=== PATIENT | male | born 1960 | race Caucasian/White ===

== ENCOUNTER 2023-02-17 14:27 | Observation (INO) ==
[2023-02-17] MEDS ORDERED: DECADRON IVP ONE (15:24)
--- NOTE | 2023-02-17 15:35 | ED.PDOC ---
General ED Provider: Dr. WILMA MURILLO MD Chief Complaint: Altered Mental Status Stated Complaint: More confused lately. 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 He was in a shelter but improved and DC back home 2 weeks ago. He was brought in by his brother for changing MS and more agitated at times. No pain or headache. No cough. Did vomit once today. Had been on peritoneal dialysis for several months and pulled his catheter out today. 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 Call to his daughter (POA) and he had a lung nodule(s) in the past and had declined work-up. Was at least a PPD smoker till earlier this year. Had history of chronic kidney injury for 2 years and sees Jason Love at [place], [place]. Been on PD since about May and actually volume of dialysate dropped to 1 liter from 2 liters. A month ago, he was admitted for persistent UTI and AMS and found to have multiple brain mets. He did great on Decadron and this was tapered down to 8 mg on Jan 23; 4 mg on Jan 25 and been on 2 mg daily since Jan 30. Time Seen by Provider: 02/17/23 15:08 Mode of Arrival: Wheelchair Information Source: Patient and Family Exam Limitations: Clinical condition, Dementia and Altered mental status Primary Care Provider: CROW BECERRA Referred to ED by: Other (self) Nursing and Triage Documentation Reviewed and Agree: Yes Neurological Complaint Exam Altered Mental Status Complaint/Exam Current Mental Status: Confusion and Agitation Duration: 1-2 days Symptoms Are: Still present Eye Deviation Present: No Character: Reports Confusion and Agitation Associated Signs and Symptoms: Reports Vomiting; Denies Headache or Fever Cardiac Risk Factors: Reports Hypertension CVA Risk Factors: Reports Hypertension Glascow Coma Scale (see protocol): Eye component 4, motor 6 and verbal of 4 Meningeal Signs Positive: No Focal Weakness: Present None Gait: Unable Review of Systems Review Of Systems Constitutional: Denies Diaphoresis, Fever, Sweats or Loss of appetite Eyes: Reports No symptoms Ears, Nose, Mouth, Throat: Reports No symptoms Respiratory: Denies Cough or Shortness of Breath Cardiac: Denies Chest pain GI: Reports Vomiting; Denies Diarrhea All Other Systems: Other (Limited ROS due to altered MS) PFSH Medical History ESRD on peritoneal dialysis N18.6 - End stage renal disease (ICD-10) Z99.2 - Dependence on renal dialysis (ICD-10) History of urinary retention Z87.898 - Personal history of other specified conditions (ICD-10) Lung nodule R91.1 - Solitary pulmonary nodule (ICD-10) Mass in chest R22.2 - Localized swelling, mass and lump, trunk (ICD-10) Peritoneal dialysis catheter, fitting and adjustment Z49.02 - Encounter for fitting and adjustment of peritoneal dialysis catheter (ICD-10) Social History Smoking and tobacco status: Former smoker How long ago did patient quit smoking: SPRING 2022 Alcohol intake: former Substance use type: former substance user Surgical History H/O inguinal hernia repair Z98.890 - Other specified postprocedural states (ICD-10) Z87.19 - Personal history of other diseases of the digestive system (ICD-10) Physical Exam Physical Exam Appearance: Reports Ill-appearing and No pain distress Ill-appearing: Mild Pain Distress: None Eyes: Reports SANTOS and EOMI ENT: Reports Nose normal and Oropharynx normal Neck: Supple Respiratory: Reports Airway patent, Breath sounds clear and Breath sounds equal; Denies Respirations nonlabored, Wheezes or Retractions Cardiovascular: Reports RRR and Pulses normal GI/: Reports Soft, Bowel sounds normal and Other (some guarding with some swelling on the lower abdomen . PD catheter intact but cap is missing) Musculoskeletal: Reports Normal strength and ROM intact Skin: Reports Warm and Dry Neurological: Reports Motor intact Psychiatric: Reports Mood appropriate and Anxious Physician Notification Case Discussed Physician Notified: Dr. Brumfield, Neurosurgery Time of Notification: 16:03 Comments: He recommended transferring to [facility], [place] for work-up Physician Notified: Mark Time of Notification: 17:00 Critical Care Note Critical Care Note Total Critical Care Time (mins): 0 Course Course 02/17/23 15:48 02/17/23 15:48 Orders, Labs, Meds: Lab Review 02/17/23 02/17/23 15:48 17:30 WBC 8.50 RBC 4.85 Hgb 13.9 L Hct 44.7 MCV 92.2 MCH 28.7 MCHC 31.1 L RDW Coeff of Delores 16.7 H Plt Count 430 Immature Gran % (Auto) 0.8 Neut % (Auto) 76.4 H Lymph % (Auto) 10.7 [place] % (Auto) 10.8 H Eos % (Auto) 0.7 Baso % (Auto) 0.6 Neut # (Auto) 6.5 Lymph # (Auto) 0.9 [place] # (Auto) 0.9 Eos # (Auto) 0.1 Baso # (Auto) 0.1 Immature Gran # (Auto) 0.1 Sodium 141.9 Potassium 3.83 Chloride 104.7 Carbon Dioxide 27.2 Anion Gap 13.83 BUN 53.1 H Creatinine 3.62 H* Estimated GFR (MDRD) 17.00 BUN/Creatinine Ratio 14.66 Glucose 124.9 H Lactic Acid 1.29 Calcium 9.50 Total Bilirubin 0.58 AST 21.9 ALT 19.8 Alkaline Phosphatase 109.3 Total Protein 8.05 Albumin 4.47 Globulin 3.58 Albumin/Globulin Ratio 1.24 Procalcitonin < 0.05 Urine Color Yellow Urine Clarity Clear Urine pH 8.5 Ur Specific [place] 1.015 Urine Protein 2+ H Urine Glucose (UA) Negative Urine Ketones Negative Urine Blood 2+ H Urine Nitrite Positive H Urine Bilirubin Negative Urine Urobilinogen 0.2 Ur Leukocyte Esterase 3+ H Urine Microscopic RBC 2-5 Urine Microscopic WBC 5-10 Ur Squamous Epith Cells 2-5 SARS CoV-2 RNA Rapid JAYA Negative Orders Category Date Time Status ADMIT PATIENT SWING .[facility] ADMISSION 02/17/23 17:[address] PATIENT OBSERVATION .[facility] ([facility] ADMISSION 02/17/23 17:18 Active BED) ACTIVITY .Up With Assistance CARE 02/17/23 17:18 Active ACTIVITY .Up With Assistance CARE 02/17/23 17:37 Active HOSPICE CONSULTATION ONCE CARE 02/17/23 17:18 Active INTAKE & OUTPUT Q8HR CARE 02/17/23 17:18 Active VITAL SIGNS Q8HR CARE 02/17/23 17:18 Completed VITAL SIGNS Q8HR CARE 02/17/23 17:39 Completed REGULAR DIET DIETARY 02/17/23 Dinner Ordered REGULAR DIET DIETARY 02/18/23 Breakfast Ordered Saline Lock [ED IV/MEDIPORT/POWERPORT] .ONCE EMERGENCY 02/17/23 15:24 Active BLOOD CULTURE (ED ONLY) Stat LAB 02/17/23 15:48 Received CBC W/ AUTO DIFF DAILY@0600 LAB 02/18/23 06:00 Ordered CBC W/ AUTO DIFF DAILY@0600 LAB 02/19/23 06:00 Ordered CBC W/ AUTO DIFF Stat LAB 02/17/23 15:48 Completed CMP [COMPREHENSIVE METABOLIC PANEL] Stat LAB 02/17/23 15:48 Completed COVID [SARS COV-2 RNA RAPID JAYA] Stat LAB 02/17/23 17:30 Completed LACTIC ACID Stat LAB 02/17/23 15:48 Completed PROCALCITONIN Stat LAB 02/17/23 15:48 Completed PT WITH INR DAILY@0600 LAB 02/18/23 06:00 Ordered PT WITH INR DAILY@0600 LAB 02/19/23 06:00 Ordered URINALYSIS C & S IF INDICATED Stat LAB 02/17/23 17:30 Completed URINE CULTURE Stat LAB 02/17/23 17:41 Received 0.9 % Sodium Chloride [Saline Flush] Meds 02/17/23 15:24 Active 1 syr IVF PRN PRN Acetaminophen [Tylenol] Meds 02/17/23 17:18 Active 650 mg PO Q4H PRN Dexamethasone Sod Phosphate [Decadron] Meds 02/17/23 15:24 Discontinued 8 mg IVP ONCE ONE Dextrose 5 %-0.45 % NaCl [Dextrose 5%-1/2Ns IV Solution Meds 02/17/23 17:37 Active ] 1,000 ml IV 100 mls/hr Lidocaine HCl Jelly [Glydo] Meds 02/17/23 16:51 Discontinued 11 ml TRANSURETH ONCE ONE Piperacillin Sodium/Tazobactam [Zosyn 2.25 gm] 2.25 gm Meds 02/17/23 17:26 Discontinued 0.9 % Sodium Chloride [Sodium Chloride 100Ml] 100 ml IV ONCE RESUSCITATION STATUS Routine OTHERS 02/17/23 17:37 Ordered CHEST, 1V AP ONLY Stat RADS 02/17/23 15:[address] HEAD W/O CONTRAST Stat RADS 02/17/23 15:24 Completed ACTIVITIES CONSULT Routine THERAPIES 02/17/23 17:38 Ordered PT INPATIENT EVALUATION Routine THERAPIES 02/17/23 17:38 Ordered Medications Generic Name Dose Route Start Last Admin Trade Name Freq PRN Reason Stop Dose Admin Acetaminophen 650 mg 02/17/23 17:18 Acetaminophen 325 Mg Tablet PO Q4H PRN Mild Pain Dextrose/Sodium Chloride 1,000 mls @ 100 mls/hr 02/17/23 17:37 Dextrose 5%-1/2ns Iv Solution IV 02/18/23 03:36 .Q10H STA Sodium Chloride 1 syr 02/17/23 15:24 02/17/23 16:01 0.9% Sodium Chloride 10 Ml Disp.Syrin IVF 1 syr PRN PRN Administration To flush IV Discontinued Medications Generic Name Dose Route Start Last Admin Trade Name Freq PRN Reason Stop Dose Admin Dexamethasone Sodium Phosphate 8 mg 02/17/23 15:24 02/17/23 16:00 Dexamethasone Sod Phos 10 Mg/Ml Inj IVP 02/17/23 15:25 8 mg ONCE ONE Administration Piperacillin Sod/Tazobactam 100 mls @ 200 mls/hr 02/17/23 17:26 02/17/23 17:47 Sod 2.25 gm/ Sodium Chloride IV 02/17/23 17:55 200 mls/hr ONCE ONE Administration Lidocaine HCl 11 ml 02/17/23 16:51 02/17/23 16:57 Lidocaine Jelly 11 Ml Jel.Pf.Elgin (5ml Female/11ml Male) TRANSURETH 02/17/23 16:52 11 ml ONCE ONE Administration Vital Signs: Temp Pulse Resp BP Pulse Ox 02/17/23 14:31 98.3 F 75 18 150/99 H [address] Brumfield at [facility] who recommend transfer and work-up. Daughter is in health care and works at [facility], [place] and didn't want her father transfer and will make him hospice. Hospitalist will only admit if he is hospice as she have no oncology,neurosurgery, rad therapy available. We did obtained urine by straight cath and 1200 cc of cloudy urine. Will dose IV Zosyn . I tried to discussed that the decadron is at best a temporazing measure as the current CT scan already showed increasing size and # of metastatic lesion in his brain. Daughter knows that her father will likely soon Discharge Plan Discharge Patient Disposition: ADMITTED INPATIENT Discharge Problem: Urinary tract infection, Acute alteration in mental status, Vasogenic brain edema, Acute urinary retention Did you review [place] SLOT OPERATIONS MANAGER for ALL controlled substances?: Not Applicable ED Provider: WILMA MURILLO Condition: Serious Physician Progress Note: []
[2023-02-17 15:56] LABS: BASOPHILS # (AUTO) 0.1 K/uL (0-0.2); BASOPHILS % (AUTO) 0.6 % (0.0-3.0); EOSINOPHILS # (AUTO) 0.1 K/ul (0.0-0.7); EOSINOPHILS % (AUTO) 0.7 % (0.0-7.0); HEMATOCRIT 44.7 % (42.0-52.0); HEMOGLOBIN 13.9 g/dl (14.0-18.0); IMMATURE GRANULOCYTE # (AUTO) 0.1 (0.0-1.0); IMMATURE GRANULOCYTE % (AUTO) 0.8 % (0.0-5.0); LYMPHOCYTES # (AUTO) 0.9 K/uL (0.60-3.4); LYMPHOCYTES % (AUTO) 10.7 (10.0-50.0); MEAN CORPUSCULAR HEMOGLOBIN 28.7 pg (27.0-31.0); MEAN CORPUSCULAR HGB CONC 31.1 (31.8-35.4); MEAN CORPUSCULAR VOLUME 92.2 fl (80.0-94.0); MONOCYTES # (AUTO) 0.9 K/uL (0.4-2.0); MONOCYTES % (AUTO) 10.8 (0-10); NEUTROPHILS # (AUTO) 6.5 K/ul (2.0-6.9); NEUTROPHILS % (AUTO) 76.4 % (42.2-75.2); PLATELET COUNT 430 10^3/uL (140-440); RDW COEFFICIENT OF VARIATION 16.7 % (11.6-14.8); RED BLOOD COUNT 4.85 10^6/ul (4.70-6.10)
--- NOTE | 2023-02-17 16:03 | DI ---
EXAM: CHEST ONE VIEW, FRONTAL VIEW ONLY. HISTORY: Altered mental status. COMPARISON: 01/14/2023. FINDINGS: Heart size is at the upper limits of normal. Atherosclerotic calcifications present. Esdras ateral bronchial thickening and reticulonodular opacities present. Larger discrete nodular densities noted at the right lung base.. No pleural effusion or pneumothorax detected. No acute osseous abno rmality is seen. IMPRESSION: 1. Bronchial thickening reticulonodular opacities which can be due to airways inflammation. 2. Right basilar nodular densities could represent metastases.
[2023-02-17 16:08] LABS: ALANINE AMINOTRANSFERASE 19.8 U/L (0-50); ALBUMIN 4.47 g/dL (3.5-5.0); ALKALINE PHOSPHATASE 109.3 U/L (56-119); ASPARTATE AMINO TRANSFERASE 21.9 U/L (17-59); BILIRUBIN,TOTAL 0.58 mg/dL (0.2-1.3); BLOOD UREA NITROGEN 53.1 mg/dL (9-20); CALCIUM 9.5 mg/dL (8.4-10.2); CARBON DIOXIDE 27.2 mmol/L (22-30.0); CHLORIDE 104.7 mmol/L (98-107); GLUCOSE 124.9 mg/dL (74-106); POTASSIUM 3.83 mmol/L (3.5-5.1); SODIUM 141.9 mmol/L (134.5-145); TOTAL PROTEIN 8.05 g/dL (6.3-8.2)
[2023-02-17 16:09] LABS: CREATININE 3.62 mg/dL (0.60-1.10)
--- NOTE | 2023-02-17 16:09 | CT ---
EXAM: CT BRAIN HISTORY: Brain metastases, altered mental status TECHNIQUE: CT brain without intravenous contrast. 5-mm axial sections with Reformations. COMPARISON: 01/14/2023 FINDINGS: Increasing size and number of multiple intracranial metastatic lesions measuring up to 2.2 cm axial dimension. One new lesion in the deep white matter on the left measuring 15 mm has partial increased density suggestive of petechial hemorrhage. Again noted is severe supratentorial vasogenic edema with mass effect. Midline shift toward the right is present of 7.8 mm, somewhat similar to th at previously seen. Basal cisterns are patent. No acute ventriculomegaly. The cranium is intact. Mastoid air cells are aerated and the visualized paranasal sinuses are clear. IMPRESSION: 1. Increasing size and number of multiple intracranial metastatic lesions measuring up to 2.2 cm axi al dimension. One new lesion in the deep white matter on the left measuring 15 mm has partial increa sed density suggestive of petechial hemorrhage. 2. Again noted is severe supratentorial vasogenic edema with mass effect. Midline shift toward the right is present of 7.8 mm, somewhat similar to that previously seen. - - - - - All CT scans are performed using dose optimization techniques as appropriate to the performed exam an d include at least one of the following: Automated exposure control, adjustment of the mA and/or kV according t o size, and the use of iterative reconstruction technique.
[2023-02-17] MEDS ORDERED: GLYDO TRANSURETH ONE (16:51)
[2023-02-17] MEDS ORDERED: TYLENOL PO PRN (17:18)
[2023-02-17] MEDS ORDERED: ZOSYN 2.25 GM 2.25 GM in SODIUM CHLORIDE 100ML 100 ML IV ONE (17:26)
[2023-02-17 17:36] LABS: BILIRUBIN,URINE Negative (NEGATIVE); CLARITY,URINE Clear (CLEAR); COLOR,URINE Yellow (YELLOW); GLUCOSE, URINE (UA) Negative (NEGATIVE); KETONES,URINE Negative (NEGATIVE); LEUKOCYTE ESTERASE ,URINE 3+ (NEGATIVE); NITRITE,URINE Positive (NEGATIVE); PH,URINE 8.5 (5-9); PROTEIN,URINE 2+ (NEGATIVE); URINE, BLOOD 2+ (NEGATIVE); UROBILINOGEN,URINE 0.2 (0.2)
[2023-02-17] MEDS ORDERED: DEXTROSE 5%-1/2NS IV SOLUTION 1,000 ML IV STA (17:37)
[2023-02-17 17:46] LABS: SARS COV-2 RNA RAPID NAAT NEGATIVE (NEGATIVE)
[2023-02-17 18:38] VITALS: BMI 20.9
[2023-02-18] MEDS ORDERED: ZYPREXA IM ONE (04:47)
[2023-02-18 05:33] LABS: BASOPHILS % (AUTO) 0.1 % (0.0-3.0); HEMOGLOBIN 13.1 g/dl (14.0-18.0); IMMATURE GRANULOCYTE # (AUTO) 0.1 (0.0-1.0); LYMPHOCYTES # (AUTO) 0.7 K/uL (0.60-3.4); LYMPHOCYTES % (AUTO) 8.1 (10.0-50.0); MEAN CORPUSCULAR HEMOGLOBIN 28.5 pg (27.0-31.0); MEAN CORPUSCULAR HGB CONC 31.2 (31.8-35.4); MEAN CORPUSCULAR VOLUME 91.3 fl (80.0-94.0); MONOCYTES # (AUTO) 0.6 K/uL (0.4-2.0); MONOCYTES % (AUTO) 7.8 (0-10); NEUTROPHILS # (AUTO) 6.8 K/ul (2.0-6.9); PLATELET COUNT 417 10^3/uL (140-440); RDW COEFFICIENT OF VARIATION 16.4 % (11.6-14.8); WHITE BLOOD COUNT 8.23 K/ul (4.2-10.2)
[2023-02-18 06:04] LABS: PROTHROMBIN TIME 9.8 SEC (9.3-11.0)
[2023-02-18 06:29] LABS: ALANINE AMINOTRANSFERASE 19.5 U/L (0-50); ALBUMIN 4.22 g/dL (3.5-5.0); ALKALINE PHOSPHATASE 95.7 U/L (56-119); ASPARTATE AMINO TRANSFERASE 21.9 U/L (17-59); BILIRUBIN,TOTAL 0.5 mg/dL (0.2-1.3); BLOOD UREA NITROGEN 48.3 mg/dL (9-20); CALCIUM 9.07 mg/dL (8.4-10.2); CARBON DIOXIDE 24.8 mmol/L (22-30.0); CHLORIDE 106.4 mmol/L (98-107); CREATININE 3.39 mg/dL (0.60-1.10); POTASSIUM 4.1 mmol/L (3.5-5.1); SODIUM 136.4 mmol/L (134.5-145); TOTAL PROTEIN 7.51 g/dL (6.3-8.2)
[2023-02-18] MEDS ORDERED: KEFLEX PO SCH (09:00)
[2023-02-18] MEDS: KEFLEX PO SCH ×3 (10:17→21:01)
[2023-02-18] MEDS: SODIUM BICARBONATE PO SCH (10:17)
[2023-02-18] MEDS: FLOMAX PO SCH (10:17)
[2023-02-18] MEDS: FLORASTOR PO SCH ×2 (10:17→21:01)
--- NOTE | 2023-02-18 10:53 | PCM ---
Date of Service Date Seen by Provider: 02/18/23 Time Seen by Provider: 08:40 Admit Day/Time Admission Date: 02/17/23 Reason for Admission Chief Complaint: VASOGENIC EDEMA,MIDLINE SHIFT Hospital Provider Hospital Provider: [facility], [facility] Primary Care Physician Primary Care Physician: CROW BECERRA History of Present Illness History of Present Illness: 62 yo male presented to the ER with his brother for altered mental status and agitation. Had an episode of vomiting earlier in the day yesterday. He was admitted on 01/15/23 and was found to have brain mets with vasogenic edema. He was placed on Decadron and d/c to the [place]. Patient improved over course of time and has been living at home over the last 2 weeks. He has been on peritoneal dialysis over the last several months and has been completed by his daughter. Brother reported that he pulled the cap off the catheter. CT scan completed in ER showed worsening mets with hemorrhages present. His daughter/POA, Gabriela Reagan, was contacted in the ER and stated that she wished for the patient to be placed on hospice and did not wish for him to be transferred for interventions to be completed. Due to AMS, unable to obtain HPI or ROS from patient. Case Discussed With Case Discussed With: Patient's case was discussed with the ER Physicians, Dr. Kim. [facility] Medical History Cancer C80.1 - Malignant (primary) neoplasm, unspecified (ICD-10) Peritoneal dialysis catheter, fitting and adjustment Z49.02 - Encounter for fitting and adjustment of peritoneal dialysis catheter (ICD-10) Mass in chest R22.2 - Localized swelling, mass and lump, trunk (ICD-10) Lung nodule R91.1 - Solitary pulmonary nodule (ICD-10) History of urinary retention Z87.898 - Personal history of other specified conditions (ICD-10) ESRD on peritoneal dialysis N18.6 - End stage renal disease (ICD-10) Z99.2 - Dependence on renal dialysis (ICD-10) Surgical History H/O inguinal hernia repair Z98.890 - Other specified postprocedural states (ICD-10) Z87.19 - Personal history of other diseases of the digestive system (ICD-10) Family History Other No known health problems Social History Smoking and tobacco status: Former smoker How long ago did patient quit smoking: SPRING 2022 Alcohol intake: former Substance use type: former substance user Allergies Allergies Allergy/AdvReac Type Severity Reaction Status Date / Time No Known Allergies Allergy Verified 02/17/23 20:52 Current Medications Home Medications tamsulosin 0.4 mg capsule (Flomax) 0.4 mg PO DAILY 07/22/22 [History Confirmed 02/17/23 Last Taken 02/16/23] Saccharomyces boulardii 250 mg capsule (Florastor) 250 mg PO BID #60 caps [Rx Confirmed 02/17/23 Last Taken 02/16/23] dexamethasone 2 mg tablet 2 mg PO BID 02/17/23 [History Confirmed 02/17/23 Last Taken 02/16/23] sodium bicarbonate 650 mg tablet 650 mg PO DAILY 02/17/23 [History Confirmed 02/17/23 Last Taken 02/16/23] Home Acetaminophen (Acetaminophen 325 Mg Tablet) 650 mg PO Q4H PRN PRN Reason: Mild Pain Cephalexin (Cephalexin 500 Mg Capsule) 500 mg PO Q8HR [facility] Stop: 02/21/23 07:29 Last Admin: 02/18/23 10:17 Dose: 500 mg Non-Formulary Medication (Dexamethasone) 2 mg PO BID [facility] Saccharomyces Boulardii (Saccharomyces Boulardii 250 Mg Capsule) 250 mg PO BID [facility] Last Admin: 02/18/23 10:17 Dose: 250 mg Sodium Bicarbonate (Sodium Bicarbonate 650 Mg Tablet) 650 mg PO DAILY [facility] Last Admin: 02/18/23 10:17 Dose: 650 mg Sodium Chloride (0.9% Sodium Chloride 10 Ml Disp.Syrin) 1 syr IVF PRN PRN PRN Reason: To flush IV Last Admin: 02/17/23 16:01 Dose: 1 syr Tamsulosin HCl (Tamsulosin Hcl 0.4 Mg Cap.Er.24h) 0.4 mg PO DAILY [facility] Last Admin: 02/18/23 10:17 Dose: 0.4 mg Discontinued Medications Cephalexin (Cephalexin 500 Mg Capsule) 500 mg PO Q6HR [facility] Stop: 02/21/23 08:59 Dexamethasone Sodium Phosphate (Dexamethasone Sod Phos 10 Mg/Ml Inj) 8 mg IVP ONCE ONE Stop: 02/17/23 15:25 Last Admin: 02/17/23 16:00 Dose: 8 mg Piperacillin Sod/Tazobactam (Sod 2.25 gm/ Sodium Chloride) 100 mls @ 200 mls/hr IV ONCE ONE Stop: 02/17/23 17:55 Last Admin: 02/17/23 17:47 Dose: 200 mls/hr Dextrose/Sodium Chloride (Dextrose 5%-1/2ns Iv Solution) 1,000 mls @ 100 mls/hr IV .Q10H STA Stop: 02/18/23 03:36 Last Infusion: 02/18/23 04:44 Dose: Infused Lidocaine HCl (Lidocaine Jelly 11 Ml Jel.Pf.Elgin (5ml Female/11ml Male)) 11 ml TRANSURETH ONCE ONE Stop: 02/17/23 16:52 Last Admin: 02/17/23 16:57 Dose: 11 ml Olanzapine (Olanzapine 10 Mg Vial) 5 mg IM ONCE ONE Stop: 02/18/23 04:48 Last Admin: 02/18/23 05:16 Dose: 5 mg Physical examination Most Recent Vital Signs: Most Recent Vital Signs Temperature 97.6 F 02/18/23 05:17 Temperature Source Oral 02/18/23 05:17 Temperature Source Temporal Artery Scan 02/17/23 14:31 Pulse Rate 75 02/18/23 07:46 Respiratory Rate 20 02/18/23 05:17 Blood Pressure 167/87 H 02/18/23 05:17 Blood Pressure Mean 113 02/18/23 05:17 Blood Pressure Left Arm 149/86 02/17/23 18:31 Blood Pressure Location Left Arm 02/18/23 05:17 Blood Pressure Position Supine 02/18/23 05:17 O2 Sat by Pulse Oximetry 99 02/18/23 05:17 Oxygen Delivery Method Room Air 02/18/23 09:53 Height 5 ft 11 in 02/17/23 18:31 Weight 150 lb 02/17/23 18:31 Appearance: Positive No Apparent Distress, Ill-Appearing and Thin Skin: Positive Warm, Good Turgor and Good Color HEENT: Positive Normocephalic and Other (+1-2 mm pupils, fixed, nonreactive to light) Neck: Positive Supple and Midline Trachea Chest/Lungs: Positive Symmetrical With Equal Breath Sounds, Clear to Auscultation Bilaterally and Good Air Movement all 4 Lung Shetty Heart: Positive RRR, Pulses Normal, No S3 Auscultated and No S4 Auscultated GI/: Positive Soft, Nontender, Bowel Sounds Normal and No Distention Musculoskeletal: Positive Not Examined Extremities: Positive Stable Joints Without Laxity Neurological: Positive Disorinted and Other (lethargic, responsive to painful stimuli, unable to follow commands) Psychiatric: Negative Oriented x4, Appropriate Mood, Appropriate Affect, Intact Memory, Good Short-Term Recall, Good Long-Term Recall, Normal Judgement, Normal Insight, Other or Not Examined Labs This Visit Labs This Visit: Labs This Visit 02/17/23 02/17/23 02/18/23 15:48 17:30 05:05 WBC 8.50 8.23 RBC 4.85 4.60 L Hgb 13.9 L 13.1 L Hct 44.7 42.0 MCV 92.2 91.3 MCH 28.7 28.5 MCHC 31.1 L 31.2 L RDW Coeff of Delores 16.7 H 16.4 H Plt Count 430 417 Immature Gran % (Auto) 0.8 1.0 Neut % (Auto) 76.4 H 83.0 H Lymph % (Auto) 10.7 8.1 L [place] % (Auto) 10.8 H 7.8 Eos % (Auto) 0.7 0.0 Baso % (Auto) 0.6 0.1 Neut # (Auto) 6.5 6.8 Lymph # (Auto) 0.9 0.7 [place] # (Auto) 0.9 0.6 Eos # (Auto) 0.1 0.0 Baso # (Auto) 0.1 0.0 Immature Gran # (Auto) 0.1 0.1 PT 9.8 INR 0.94 Sodium 141.9 136.4 Potassium 3.83 4.10 Chloride 104.7 106.4 Carbon Dioxide 27.2 24.8 Anion Gap 13.83 9.30 BUN 53.1 H 48.3 H Creatinine 3.62 H* 3.39 H Estimated GFR (MDRD) 17.00 19.00 BUN/Creatinine Ratio 14.66 14.24 Glucose 124.9 H 118.0 H Lactic Acid 1.29 Calcium 9.50 9.07 Total Bilirubin 0.58 0.50 AST 21.9 21.9 ALT 19.8 19.5 Alkaline Phosphatase 109.3 95.7 Total Protein 8.05 7.51 Albumin 4.47 4.22 Globulin 3.58 3.29 Albumin/Globulin Ratio 1.24 1.28 Procalcitonin < 0.05 Urine Color Yellow Urine Clarity Clear Urine pH 8.5 Ur Specific [place] 1.015 Urine Protein 2+ H Urine Glucose (UA) Negative Urine Ketones Negative Urine Blood 2+ H Urine Nitrite Positive H Urine Bilirubin Negative Urine Urobilinogen 0.2 Ur Leukocyte Esterase 3+ H Urine Microscopic RBC 2-5 Urine Microscopic WBC 5-10 Ur Squamous Epith Cells 2-5 SARS CoV-2 RNA Rapid JAYA Negative Microbiology This Visit 02/17/23 17:41 Urine,Random Urine Culture - Preliminary Imaging Imaging: Date of Service: 01/14/23 EXAM: CT HEAD WITHOUT CONTRAST. FINDINGS: There are multiple bilateral ill-defined intraparenchymal masses in the frontal lobes, parietal lobes and right temporal lobe measuring up to 1.9 cm with extensive surrounding vasogenic edema. There is 0.7 cm left to right midline shift at the level of the septum pellucidum. The ventricles are within normal limits in size. The basal cisterns are normal in appearance. No intracranial hemorrhage. No extra-axial fluid collection. There is minimal mucosal thickening in the paranasal sinuses. The mastoid air cells are normal in appearance. Impression: Multiple bilateral intraparenchymal masses measuring up to 1.7 cm with extensive surrounding vasogenic edema, suspicious for metastatic disease. Midline shift as described. Paranasal sinusitis. Critical result: I personally discussed Impression #1 and #2 with the patient's ER physician (Dr. Grier) on 01/14/2023 at 8:53 p.m. Date of Service: 02/17/23 EXAM: CT BRAIN FINDINGS: Increasing size and number of multiple intracranial metastatic lesions measuring up to 2.2 cm axial dimension. One new lesion in the deep white matter on the left measuring 15 mm has partial increased density suggestive of petechial hemorrhage. Again noted is severe supratentorial vasogenic edema with mass effect. Midline shift toward the right is present of 7.8 mm, somewhat similar to that previously seen. Basal cisterns are patent. No acute ventriculomegaly. The cranium is intact. Mastoid air cells are aerated and the visualized paranasal sinuses are clear. IMPRESSION: 1. Increasing size and number of multiple intracranial metastatic lesions measuring up to 2.2 cm axial dimension. One new lesion in the deep white matter on the left measuring 15 mm has partial increased density suggestive of petechial hemorrhage. 2. Again noted is severe supratentorial vasogenic edema with mass effect. Midline shift toward the right is present of 7.8 mm, somewhat similar to that previously seen. Review Statement Review Statement: I have independently reviewed and interpreted the labs/EKGs/imaging that were ordered by the ER provider. I have reviewed all outside records that are available currently in our EMR including imaging/notes/labs from previous visits. Plan Plan: 1. Vasogenic brain edema in setting of metastatic brain lesions and petechial hemorrhage - terminal condition, Hospice consult, family does not wish aggressive measures 2. UTI - urine culture growth of gram negative rods, WBC negative, keflex Q8H All home medications continued for chronic conditions until patient is unable to swallow. DVT Prophylaxis: Comfort Measures Time Spent: Greater than 80 minutes spent with patient, 50% of the time spent with this patient was devoted to counseling and coordination of care. Advanced Care Plannin minutes spent discussing advance care planning. Disposition: Admit to: Med/Surg Observation DNR Discussed Plan of Care with Dr. Josy Emery. Medications Medication Orders: Medications Ordered Category Date Time Status 0.9 % Sodium Chloride [Saline Flush] Meds 02/17/23 15:24 Active 1 syr IVF PRN PRN Acetaminophen [Tylenol] Meds 02/17/23 17:18 Active 650 mg PO Q4H PRN Cephalexin [Keflex] Meds 02/18/23 07:30 Active 500 mg PO Q8HR Saccharomyces Boulardii [Florastor] Meds 02/18/23 09:00 Active 250 mg PO BID Sodium Bicarbonate Meds 02/18/23 09:00 Active 650 mg PO DAILY Tamsulosin HCl [Flomax] Meds 02/18/23 09:00 Active 0.4 mg PO DAILY dexamethasone Meds 02/18/23 09:00 Active 2 mg PO BID
[2023-02-18] MEDS ORDERED: VANCOMYCIN 1 GRAM/200 ML PREMIX 1 GM/200 ML BAG IV ONE (19:56)
[2023-02-18] MEDS ORDERED: DECADRON IVP ONE (20:47)
[2023-02-19 02:12] VITALS: RESP 18
[2023-02-19] MEDS: KEFLEX PO SCH ×2 (04:53→12:09)
[2023-02-19 05:32] LABS: BASOPHILS % (AUTO) 0.2 % (0.0-3.0); HEMATOCRIT 44.3 % (42.0-52.0); HEMOGLOBIN 13.8 g/dl (14.0-18.0); IMMATURE GRANULOCYTE # (AUTO) 0.1 (0.0-1.0); IMMATURE GRANULOCYTE % (AUTO) 1.3 % (0.0-5.0); LYMPHOCYTES # (AUTO) 0.8 K/uL (0.60-3.4); LYMPHOCYTES % (AUTO) 8.2 (10.0-50.0); MEAN CORPUSCULAR HEMOGLOBIN 28.8 pg (27.0-31.0); MEAN CORPUSCULAR HGB CONC 31.2 (31.8-35.4); MEAN CORPUSCULAR VOLUME 92.5 fl (80.0-94.0); MONOCYTES # (AUTO) 0.2 K/uL (0.4-2.0); MONOCYTES % (AUTO) 1.9 (0-10); NEUTROPHILS # (AUTO) 8.6 K/ul (2.0-6.9); NEUTROPHILS % (AUTO) 88.4 % (42.2-75.2); PLATELET COUNT 444 10^3/uL (140-440); RDW COEFFICIENT OF VARIATION 16.8 % (11.6-14.8); RED BLOOD COUNT 4.79 10^6/ul (4.70-6.10); WHITE BLOOD COUNT 9.77 K/ul (4.2-10.2)
[2023-02-19 05:44] LABS: ALANINE AMINOTRANSFERASE 21.4 U/L (0-50); ALBUMIN 4.25 g/dL (3.5-5.0); ALKALINE PHOSPHATASE 96.9 U/L (56-119); ASPARTATE AMINO TRANSFERASE 23.5 U/L (17-59); BILIRUBIN,TOTAL 0.36 mg/dL (0.2-1.3); BLOOD UREA NITROGEN 49.9 mg/dL (9-20); CALCIUM 8.99 mg/dL (8.4-10.2); CARBON DIOXIDE 23.4 mmol/L (22-30.0); CHLORIDE 106.2 mmol/L (98-107); CREATININE 3.29 mg/dL (0.60-1.10); GLUCOSE 128.3 mg/dL (74-106); POTASSIUM 4.79 mmol/L (3.5-5.1); SODIUM 139.7 mmol/L (134.5-145); TOTAL PROTEIN 7.63 g/dL (6.3-8.2)
[2023-02-19 06:22] LABS: PROTHROMBIN TIME 9.6 SEC (9.3-11.0)
[2023-02-19] MEDS: FLOMAX PO SCH (08:52)
[2023-02-19] MEDS: FLORASTOR PO SCH (08:52)
[2023-02-19] MEDS: SODIUM BICARBONATE PO SCH (08:52)
[2023-02-19 10:31] VITALS: TEMP 97.4
--- NOTE | 2023-02-19 11:07 | DCSUM ---
Admission Date Admission Date: 02/17/23 Discharge Date Discharge Date: 02/19/23 Admission Diagnosis Admission Diagnosis: 1. Vasogenic brain edema in setting of metastatic brain lesions and petechial hemorrhage 2. UTI Discharge Diagnosis Discharge Diagnosis: 1. Vasogenic brain edema in setting of metastatic brain lesions and petechial hemorrhage - Worsening 2. UTI - Improving Hospital Provider Hospital Provider: [facility] Primary Care Physician: CROW BECERRA Summary of History and Physical Summary of History and Physical: 62 yo male presented to the ER with his brother for altered mental status and agitation. Had an episode of vomiting earlier in the day yesterday. He was admitted on 01/15/23 and was found to have brain mets with vasogenic edema. He was placed on Decadron and d/c to the [facility]. Patient improved over course of time and has been living at home over the last 2 weeks. He has been on peritoneal dialysis over the last several months and has been completed by his daughter. Brother reported that he pulled the cap off the catheter. CT scan completed in ER showed worsening mets with hemorrhages present. His daughter/POA, Gabriela Reagan, was contacted in the ER and stated that she wished for the patient to be placed on hospice and did not wish for him to be transferred for interventions to be completed. Due to AMS, unable to obtain HPI or ROS from patient. Hospital Course Subjective: Daughter was contacted and determined plan of care for patient was hospice due to worsening brain mets with hemorrhage and edema. Wished for patient to continue high dose dexamethasone as well as hospice care. Due to daughter being on vacation and family unable to care for patient due to current state, patient was accepted to [facility] for hospice to take over care next week when the daughter returns from vacation. UTI was found during ER workup. Patient had been previously started on keflex Q8H per nephrology due to cap on peritoneal dialysis catheter being off. Urine culture showed growth of proteus mirabilis sensitive to keflex. Patient has been awake and cooperative. Speech is garbled and patient is able to follow some basic commands today. Appearance: Pleasant, No Apparent Distress and Alert HEENT: MMM and Supple CVS: No Murmur and No Rubs Abdomen: Soft, Non-Tender and No Distention Respiratory: No Dyspnea Extremities: No Edema Vital Signs: Most Recent Vital Signs Temperature 97.4 F L 02/19/23 10:00 Temperature Source Temporal Artery Scan 02/19/23 10:00 Temperature Source Temporal Artery Scan 02/17/23 14:31 Pulse Rate 71 02/19/23 10:00 Respiratory Rate 18 02/19/23 10:00 Blood Pressure 111/78 02/19/23 10:00 Blood Pressure Mean 89 02/19/23 10:00 Blood Pressure Left Arm 149/86 02/17/23 18:31 Blood Pressure Location Left Arm 02/19/23 10:00 Blood Pressure Position Supine 02/19/23 10:00 O2 Sat by Pulse Oximetry 95 02/19/23 10:00 Oxygen Delivery Method Room Air 02/19/23 10:00 Height 5 ft 11 in 02/17/23 18:31 Weight 150 lb 02/17/23 18:31 Lab Results Last 24 Hours: 02/19/23 04:58 WBC 9.77 RBC 4.79 Hgb 13.8 L Hct 44.3 MCV 92.5 MCH 28.8 MCHC 31.2 L RDW Coeff of Delores 16.8 H Plt Count 444 H Immature Gran % (Auto) 1.3 Neut % (Auto) 88.4 H Lymph % (Auto) 8.2 L [place] % (Auto) 1.9 Eos % (Auto) 0.0 Baso % (Auto) 0.2 Neut # (Auto) 8.6 H Lymph # (Auto) 0.8 [place] # (Auto) 0.2 L Eos # (Auto) 0.0 Baso # (Auto) 0.0 Immature Gran # (Auto) 0.1 PT 9.6 INR 0.92 Sodium 139.7 Potassium 4.79 Chloride 106.2 Carbon Dioxide 23.4 Anion Gap 14.89 BUN 49.9 H Creatinine 3.29 H Estimated GFR (MDRD) 19.00 BUN/Creatinine Ratio 15.16 Glucose 128.3 H Calcium 8.99 Total Bilirubin 0.36 AST 23.5 ALT 21.4 Alkaline Phosphatase 96.9 Total Protein 7.63 Albumin 4.25 Globulin 3.38 Albumin/Globulin Ratio 1.25 Discharge Instructions Discharge Planning: Discharge Planning > 40 minutes If patient is discharged with left ventricular systolic dysfunction: NA Discharged with a beta iva? [] If no, why not? [] Discharged with an carl/arb? [] If no, why not? [] REGULAR DIET [facility] CONSULT DECADRON 10 MG BID - PER DAUGHTER REQUEST Continue Keflex as prescribed per Dr. Love. Discharge Medications: Medications at Discharge (Home Meds & RX) tamsulosin 0.4 mg capsule (Flomax) 0.4 mg PO DAILY 07/22/22 Saccharomyces boulardii 250 mg capsule (Florastor) 250 mg PO BID #60 caps 01/17/23 sodium bicarbonate 650 mg tablet 650 mg PO DAILY 02/17/23 cephalexin 500 mg capsule 500 mg PO Q8HR #30 caps 02/18/23 dexamethasone 20 mg tablet 10 mg (1/2 x 20 mg) PO BID #30 tabs 02/18/23 Discharge Plan Discharge Discharge Orders: Discharge Patient (ONCE); Ordered 02/19/23 Ordered By: CRISTINA ROJO Activity Restrictions/Additional Instructions: REGULAR DIET [facility] CONSULT DECADRON 10 MG BID - PER DAUGHTER REQUEST Continue Keflex as prescribed per Dr. Love. Patient Disposition: TRANSFER [facility] Prescriptions: New cephalexin 500 mg Capsule 500 mg PO Q8HR Qty: 30 0RF dexamethasone 20 mg tablet 10 mg PO BID Qty: 30 0RF Continued tamsulosin [Flomax] 0.4 mg Capsule 0.4 mg PO DAILY Saccharomyces boulardii [Florastor] 250 mg Capsule 250 mg PO BID Qty: 60 0RF sodium bicarbonate 650 mg tablet 650 mg PO DAILY Patient Comments: TAKE 1 TABLET BY MOUTH ONCE DAILY Discontinued dexamethasone 2 mg tablet 2 mg PO BID Patient Comments: TAKE 1 TABLET BY MOUTH TWICE DAILY WITH MEALS FOR 5 DAYS THEN TAKE 1 TABLET BY MOUTH DAILY WITH BREAKFAST FOR 30 DAYS Did you review [place] [employer] for ALL controlled substances?: No Discussed opioids are addictive and Narcan is available by prescription or from pharmacy.: No Condition: Stable
[2023-02-19 14:14] VITALS: BP 124/92; PULSE 89
== END 2023-02-19 15:05 ==
LOC: MEDSURG B 14:27 → ED 14:27 → MEDSURG B 18:20
PROVIDERS: ADMIT Physician Assistant; ATTEND Nurse Practitioner Family
DX: R41.82 Altered mental status, unspecified; N18.6 End stage renal disease; R11.2 Nausea with vomiting, unspecified; Z20.822 Contact with and (suspected) exposure to COVID-19; Z99.2 Dependence on renal dialysis; C79.31 Secondary malignant neoplasm of brain; N39.0 Urinary tract infection, site not specified; I10 Essential (primary) hypertension; R91.8 Other nonspecific abnormal finding of lung field; G93.6 Cerebral edema